=== PATIENT | male | born 1980 | race Caucasian/White ===

== ENCOUNTER 2020-06-05 16:39 | Outpatient (REF) | payer SELFPAY | END 2020-06-05 16:40 | disposition home or self-care (01) | LOC: HO.LAB 16:39 | PROVIDERS: PCP Pediatrics; Visit Provider Internal Medicine | DX: Z20.828 Contact with and (suspected) exposure to other viral communicable diseases (principal) | CPT/HCPCS: 36415; 87635 ==

== ENCOUNTER 2020-09-01 12:33 | Outpatient (REF) | payer SELFPAY | END 2020-09-01 12:34 | disposition home or self-care (01) | LOC: HO.LAB 12:33 | PROVIDERS: PCP Pediatrics; Visit Provider Internal Medicine | DX: Z20.828 Contact with and (suspected) exposure to other viral communicable diseases (principal) | CPT/HCPCS: C9803; U0003 ==